=== PATIENT | female | born 1945 | race Caucasian/White ===

== ENCOUNTER 2019-04-19 10:15 | Emergency (ER) | payer OTHER ==
[2019-04-19 12:27] LABS: Absolute Lymphocytes (CBC) 1.5 K/uL (0.7-4.9); Hematocrit 43.2 % (36.0-45.0); Lymphocytes % 34.4 % (15.3-44.8); RBC Red Blood Cell Count 4.53 M/uL (3.86-4.86)
[2019-04-19 12:28] LABS: Protime INR 0.97
[2019-04-19] MEDS ORDERED: ASPIRIN 81 MG CHEWABLE TABLET ONE (12:47)
[2019-04-19] MEDS ORDERED: NA CHLORIDE 0.9% 1,000 ML ONE (12:47)
[2019-04-19 12:49] LABS: ALT/SGPT 17 U/L (12-78); AST/SGOT 16 U/L (15-37); Alkaline Phosphatase 74 U/L (45-117); BUN Blood Urea Nitrogen 10 mg/dL (7-18); Bicarbonate 29 mmol/L (21-32); Bilirubin Direct 0.1 mg/dL (0-0.2); Bilirubin Total 0.4 mg/dL (0.2-1.0); Glucose Level 89 mg/dL (74-106); Lipase 282 U/L (73-393); Magnesium 2.2 mg/dL (1.8-2.4); NT PRO-BNP 326 pg/mL (<450); Potassium 3.7 mmol/L (3.5-5.1); Protein, Total 7.2 g/dL (6.4-8.2); Sodium Level 136 mmol/L (136-145); Troponin (Emerg Dept Use Only) < 0.02 ng/mL (0.0-0.045)
[2019-04-19] MEDS ORDERED: FOLIC ACID 5 MG/ML VIAL ONE (12:49)
[2019-04-19 13:16] LABS: Urine Blood TRACE (NEG); Urine Glucose NEGATIVE (NEG); Urine Protein NEGATIVE (NEG); Urine Specific Gravity 1.015 (1.005-1.030)
[2019-04-19] MEDS ORDERED: CEFTRIAXONE/SWI 1gm 1 GM/10 ML SYR ONE (14:22)
--- NOTE | 2019-04-19 14:58 | ER ---
Nurse's Notes [facility] Name: Eve Lr Age: 73 yrs Sex: Female : 1945 Arrival Date: 04/19/2019 Time: 10:19 Bed 15 Private MD: Diagnosis: Fall due to bumping against object;Weakness;Urinary tract infection, site not specified Presentation: 04/19 10:42 Presenting complaint: Patient states: "4 weeks ago I became a little shaky, having hot ss flashes, crying all the time and five days ago, I was calling items different names, but then it went away after about five minutes and this morning, I went walking and all of a sudden out of nowhere I just fell over to the right side and fell into somebody's yard." Patient feels shaky, mild headache and generalized weakness.". Transition of care: patient was not received from another setting of care. No acute neurological deficit is noted. Pre-hospital glucose is not applicable to this patient. Onset of symptoms is unknown. Risk Assessment: Do you want to hurt yourself or someone else? Patient reports no desire to harm self or others. Initial Sepsis Screen: Does the patient meet any 2 criteria? No. Patient's initial sepsis screen is negative. Does the patient have a suspected source of infection? No. Patient's initial sepsis screen is negative. Care prior to arrival: None. 10:42 Method Of Arrival: Ambulatory ss 10:42 Acuity: MOLLY 3 ss Stroke Activation: Symptom onset > 6 hours Physician: Stroke Attending; Name: ; Notified At: ; Arrived At: Physician: Chief Stroke Resident; Name: ; Notified At: ; Arrived At: Physician: Stroke Resident; Name: ; Notified At: ; Arrived At: Physician: ED Attending; Name: ; Notified At: ; Arrived At: Physician: ED Resident; Name: ; Notified At: ; Arrived At: Historical: - Allergies: 10:45 Amoxicillin; ss - PMHx: 15:58 Hypothyroidism; Hypertension; Anxiety; ph - Immunization history:: Flu vaccine is not up to date. - Social history:: Smoking status: Patient/guardian denies using tobacco. - Ebola Screening: : Patient denies exposure to infectious person Patient denies travel to an Ebola-affected area in the 21 days before illness onset. - Family history:: not pertinent. Screenin:47 Abuse screen: Denies threats or abuse. Nutritional screening: No deficits noted. ph Tuberculosis screening: No symptoms or risk factors identified. Fall Risk Fall in past 12 months (25 points). No secondary diagnosis (0 pts). IV access (20 points). Ambulatory Aid- None/Bed Rest/Nurse Assist (0 pts). Gait- Normal/Bed Rest/Wheelchair (0 pts) Mental Status- Oriented to own ability (0 pts). Total Webber Fall Scale indicates High Risk Score (45 or more points). Fall prevention measures have been instituted. Side Rails Up X 2 Placed Close to Nursing Station Frequent Obs/Assessments Occuring. Assessment: 11:30 General: Appears in no apparent distress. comfortable, slender, well groomed, Behavior ph is calm, cooperative. Pain: Denies pain. Neuro: No deficits noted. Level of Consciousness is awake, alert, obeys commands, Oriented to person, place, time, situation, Document Specialist are equal bilaterally Moves all extremities. Full function Gait is steady, Speech is normal, Facial symmetry appears normal, Pupils are PERRLA, Intact Reports Pt reports difficulty walking, states she fell while on her daily walk, denies injury. Denies blurred vision dizziness, difficulty swallowing, numbness headache. Cardiovascular: Denies chest pain, nausea, shortness of breath, syncope, Capillary refill < 3 seconds Patient's skin is warm and dry. Respiratory: Respiratory effort is even, unlabored, Respiratory pattern is regular, symmetrical. 11:30 VAN Scoring: Arm Drift: Patients demonstrates NO arm weakness. Patient is VAN Negative. ph GI: No signs and/or symptoms were reported involving the gastrointestinal system. : No signs and/or symptoms were reported regarding the genitourinary system. Derm: Skin is intact, is healthy with good turgor, is fragile, is thin, Skin is dry, Skin is pink, warm \\T\\ dry. normal, Skin temperature is warm. 12:30 Patient has been NPO before screening. The patient is alert, and able to follow ph commands. The patient does not exhibit slurred or garbled speech. The patient is not exhibiting difficulty speaking. The patient does not exhibit difficulty understanding words. The patient is able to swallow own secretions with no drooling or need for suction. Patient tolerated one teaspoon of water. No drooling, immediate coughing, gurgling, or clearing of the throat was noted. The patient tolerated 90mL of water. No drooling, immediate coughing, gurgling, or clearing of the throat was noted. The patient passed the bedside swallow screening. Oral medications may be given as ordered. Contact Physician for further diet orders. Provider notified of bedside swallow screening results: David Lino MD. 13:10 Reassessment: Patient appears in no apparent distress at this time. Patient and/or ph family updated on plan of care and expected duration. Pain level reassessed. Patient is alert, oriented x 3, equal unlabored respirations, skin warm/dry/pink. Pt taken to radiology vis wheelchair. 14:46 Reassessment: No changes from previously documented assessment. Patient and/or family ph updated on plan of care and expected duration. Pain level reassessed. Patient is alert, oriented x 3, equal unlabored respirations, skin warm/dry/pink. Pt taken to MRA via wheelchair. Vital Signs: 10:45 BP 157 / 86; Pulse 65; Resp 16; Temp 98.5(TE); Pulse Ox 99% on R/A; Weight 50.8 kg; ss Height 5 ft. 3 in. (160.02 cm); Pain 2/10; 12:00 BP 158 / 87; Pulse 67; Resp 18; Pulse Ox 99% on R/A; ph 13:00 BP 161 / 96; Pulse 67; Resp 18; Pulse Ox 99% on R/A; ph 14:15 BP 146 / 78; Pulse 68; Resp 16; Pulse Ox 100% on R/A; ph 15:52 BP 154 / 78; Pulse 63; Resp 16; Temp 97.8; Pulse Ox 98% on R/A; ph 10:45 Body Mass Index 19.84 (50.80 kg, 160.02 cm) ss NIH Stroke Scale Scores: 11:30 NIHSS Score: 0 ph 12:51 NIHSS Score: 0 [facility] ED Course: 10:19 Patient arrived in ED. as 10:45 Triage completed. ss 10:45 Arm band placed on left wrist. ss 11:00 CT Head Brain wo Cont In Process Unspecified. EDMS 11:21 Aditi Calhoun RN is Primary Nurse. ph 11:28 David Lino MD is Attending Physician. karolyn 12:00 EKG done, by ophthalmic medical technologist. reviewed by David Lino MD. at1 13:30 US Carotid Artery Bilateral In Process Unspecified. EDMS 13:30 Inserted saline lock: 22 gauge in right antecubital area, using aseptic technique. ph 14:14 XRAY Chest (1 view) In Process Unspecified. EDMS 14:14 Ultrasound completed. Patient tolerated well. Patient moved back from ultrasound. lc3 14:49 Patient has correct armband on for positive identification. Allergy band placed. Bed in ph low position. Call light in reach. Side rails up X 1. 14:52 Brain Wo Cont In Process Unspecified. EDMS 14:57 Chidi Yang MD is Referral Physician. karolyn 15:55 No provider procedures requiring assistance completed. IV discontinued, intact, ph bleeding controlled, No redness/swelling at site. Pressure dressing applied. Administered Medications: 13:05 Drug: Aspirin 162 mg Route: PO; ph 15:59 Follow up: Response: No adverse reaction ph 13:05 Drug: NS 0.9% 1000 ml Route: IV; Rate: 1 bolus; Site: right antecubital; ph 15:59 Follow up: Response: No adverse reaction; IV Status: Completed infusion; IV Intake: ph 400ml 13:05 Drug: foLIC Acid 1 mg Route: IVPB; Site: right antecubital; ph 16:00 Follow up: Response: No adverse reaction; IV Status: Completed infusion ph 14:32 Drug: Rocephin 1 grams Route: IV; Rate: per protocol; Site: right antecubital; ph 16:01 Follow up: Response: No adverse reaction; IV Status: Completed infusion ph 15:59 Not Given (Other Intervention Used): NS 0.9% 1000 ml IV at 125 ml/hr continuous ph Intake: 15:59 IV: 400ml; Total: 400ml. ph Outcome: 14:57 Discharge ordered by . karolyn 15:56 Discharged to home ambulatory, with friend. ph 15:56 Condition: good 15:56 Discharge instructions given to patient, Instructed on discharge instructions, follow up and referral plans. medication usage, Demonstrated understanding of instructions, follow-up care, medications, Prescriptions given X 2. 16:02 Patient left the ED. ph NIH Stroke Scale - NIH Stroke Score Date: 04/19/2019 Time: 11:30 Total Score = 0 1a. Level of Consciousness (LOC) - 0(Alert) 1b. Level of Consciousness (LOC) (Year \\T\\ Age) - 0(Both) 1c. LOC Commands (Open \\T\\ Closes Eyes/Track Welder) - 0(Both) 2. Best Gaze (Lateral Gaze Paresis) - 0(Normal) 3. Visual Field Loss - 0(No visual loss) 4. Facial Palsy - 0(Normal) 5a. Left Arm: Motor (10-second hold) - 0(No drift) 5b. Right Arm: Motor (10-second hold) - 0(No drift) 6a. Left Leg: Motor (5-second hold - always test supine) - 0(No drift) 6b. Right Leg: Motor (5-second hold - always test supine) - 0(No drift) 7. Limb Ataxia (finger/nose \\T\\ heel/rao - test with eyes open) - 0(Absent) 8. Sensory Loss (pinprick arms/legs/face) - 0(Normal) 9. Best Language: Aphasia (description/naming/reading) - 0(No aphasia) 10. Dysarthria (speech clarity - read or repeat words) - 0(Normal) 11. Extinction and Inattention (visual/tactile/auditory/spatial/personal) - 0(No abnormality) Initials: NIH Stroke Scale - NIH Stroke Score Date: 04/19/2019 Time: 12:51 Total Score = 0 1a. Level of Consciousness (LOC) - 0(Alert) 1b. Level of Consciousness (LOC) (Year \\T\\ Age) - 0(Both) 1c. LOC Commands (Open \\T\\ Closes Eyes/Track Welder) - 0(Both) 2. Best Gaze (Lateral Gaze Paresis) - 0(Normal) 3. Visual Field Loss - 0(No visual loss) 4. Facial Palsy - 0(Normal) 5a. Left Arm: Motor (10-second hold) - 0(No drift) 5b. Right Arm: Motor (10-second hold) - 0(No drift) 6a. Left Leg: Motor (5-second hold - always test supine) - 0(No drift) 6b. Right Leg: Motor (5-second hold - always test supine) - 0(No drift) 7. Limb Ataxia (finger/nose \\T\\ heel/rao - test with eyes open) - 0(Absent) 8. Sensory Loss (pinprick arms/legs/face) - 0(Normal) 9. Best Language: Aphasia (description/naming/reading) - 0(No aphasia) 10. Dysarthria (speech clarity - read or repeat words) - 0(Normal) 11. Extinction and Inattention (visual/tactile/auditory/spatial/personal) - 0(No abnormality) Initials: karolyn Signatures: Dispatcher [employer] David Guo MD MD cha Martinez, Amelia as Smirch, Shelby, RN RN Billie Cordova, chair upholsterer EKG Tat1 Aditi Calhoun RN RN Yannick Schmitz [facility]
--- NOTE | 2019-04-19 14:58 | EDPHYS ---
[facility] Name: Eve Lr Age: 73 yrs Sex: Female : 1945 Arrival Date: 04/19/2019 Time: 10:19 Bed 15 Private MD: ED Physician David Lino HPI: 04/19 12:51 This 73 yrs old Female presents to ER via Ambulatory with complaints of karolyn Trouble Walking. 12:51 The patient presents to the emergency department with weakness of the difficult karolyn walking, the patient falls to the left. Onset: The symptoms/episode began/occurred 5 day(s) ago. Context: occurred at home, occurred while the patient was after taking a medication. Associated signs and symptoms: The patient has no apparent associated signs or symptoms. Severity of symptoms: At their worst the symptoms were mild in the emergency department the symptoms are unchanged. Patient's baseline: Neuro: alert and fully oriented. The patient has not experienced similar symptoms in the past. Historical: - Allergies: 10:45 Amoxicillin; ss - PMHx: 15:58 Hypothyroidism; Hypertension; Anxiety; ph - Immunization history:: Flu vaccine is not up to date. - Social history:: Smoking status: Patient/guardian denies using tobacco. - Ebola Screening: : Patient denies exposure to infectious person Patient denies travel to an Ebola-affected area in the 21 days before illness onset. - Family history:: not pertinent. ROS: 12:51 Constitutional: Negative for fever, chills, and weight loss, Eyes: Negative for injury, karolyn pain, redness, and discharge, ENT: Negative for injury, pain, and discharge, Neck: Negative for injury, pain, and swelling, Cardiovascular: Negative for chest pain, palpitations, and edema, Respiratory: Negative for shortness of breath, cough, wheezing, and pleuritic chest pain, Abdomen/GI: Negative for abdominal pain, nausea, vomiting, diarrhea, and constipation, Back: Negative for injury and pain, : Negative for injury, bleeding, discharge, and swelling, MS/Extremity: Negative for injury and deformity, Skin: Negative for injury, rash, and discoloration, Psych: Negative for depression, anxiety, suicide ideation, homicidal ideation, and hallucinations, Allergy/Immunology: Negative for hives, rash, and allergies, Endocrine: Negative for neck swelling, polydipsia, polyuria, polyphagia, and marked weight changes, Hematologic/Lymphatic: Negative for swollen nodes, abnormal bleeding, and unusual bruising. 12:51 Neuro: Positive for dizziness, weakness. Exam: 12:51 Constitutional: This is a well developed, well nourished patient who is awake, alert, karolyn and in no acute distress. Head/Face: Normocephalic, atraumatic. Eyes: Pupils equal round and reactive to light, extra-ocular motions intact. Lids and lashes normal. Conjunctiva and sclera are non-icteric and not injected. Cornea within normal limits. Periorbital areas with no swelling, redness, or edema. ENT: Nares patent. No nasal discharge, no septal abnormalities noted. Tympanic membranes are normal and external auditory canals are clear. Oropharynx with no redness, swelling, or masses, exudates, or evidence of obstruction, uvula midline. Mucous membranes moist. Neck: Trachea midline, no thyromegaly or masses palpated, and no cervical lymphadenopathy. Supple, full range of motion without nuchal rigidity, or vertebral point tenderness. No Meningismus. Chest/axilla: Normal chest wall appearance and motion. Nontender with no deformity. No lesions are appreciated. Cardiovascular: Regular rate and rhythm with a normal S1 and S2. No gallops, murmurs, or rubs. Normal PMI, no JVD. No pulse deficits. Respiratory: Lungs have equal breath sounds bilaterally, clear to auscultation and percussion. No rales, rhonchi or wheezes noted. No increased work of breathing, no retractions or nasal flaring. Abdomen/GI: Soft, non-tender, with normal bowel sounds. No distension or tympany. No guarding or rebound. No evidence of tenderness throughout. Back: No spinal tenderness. No costovertebral tenderness. Full range of motion. Female : Normal external genitalia. Skin: Warm, dry with normal turgor. Normal color with no rashes, no lesions, and no evidence of cellulitis. MS/ Extremity: Pulses equal, no cyanosis. Neurovascular intact. Full, normal range of motion. Neuro: Awake and alert, GCS 15, oriented to person, place, time, and situation. Cranial nerves II-XII grossly intact. Motor strength 5/5 in all extremities. Sensory grossly intact. Cerebellar exam normal. Normal gait. Psych: Awake, alert, with orientation to person, place and time. Behavior, mood, and affect are within normal limits. Vital Signs: 10:45 BP 157 / 86; Pulse 65; Resp 16; Temp 98.5(TE); Pulse Ox 99% on R/A; Weight 50.8 kg; ss Height 5 ft. 3 in. (160.02 cm); Pain 2/10; 12:00 BP 158 / 87; Pulse 67; Resp 18; Pulse Ox 99% on R/A; ph 13:00 BP 161 / 96; Pulse 67; Resp 18; Pulse Ox 99% on R/A; ph 14:15 BP 146 / 78; Pulse 68; Resp 16; Pulse Ox 100% on R/A; ph 15:52 BP 154 / 78; Pulse 63; Resp 16; Temp 97.8; Pulse Ox 98% on R/A; ph 10:45 Body Mass Index 19.84 (50.80 kg, 160.02 cm) NIH Stroke Scale Scores: 11:30 NIHSS Score: 0 ph 12:51 NIHSS Score: 0 karolyn MDM: 11:28 Patient medically screened. karolyn 14:59 Data reviewed: vital signs, nurses notes, lab test result(s), EKG, radiologic studies, [place] CT scan, doppler, MRI, plain films. 04/19 11:40 Order name: Basic Metabolic Panel; Complete Time: 12:51 [place] 04/19 11:40 Order name: CBC with Diff; Complete Time: 12:51 [place] 04/19 11:40 Order name: LFT's; Complete Time: 12:51 [place] 04/19 11:40 Order name: Magnesium; Complete Time: 12:51 [place] 04/19 11:40 Order name: NT PRO-BNP; Complete Time: 12:51 [place] 04/19 11:40 Order name: PT-INR; Complete Time: 12:51 [place] 04/19 10:47 Order name: CT Head Brain wo Cont 04/19 11:40 Order name: Troponin (emerg Dept Use Only); Complete Time: 12:51 [place] 04/19 11:40 Order name: XRAY Chest (1 view) [place] 04/19 11:40 Order name: Lipase; Complete Time: 12:51 [place] 04/19 11:40 Order name: Urine Culture [place] 04/19 12:34 Order name: US Carotid Artery Bilateral [place] 04/19 13:11 Order name: Urine Dipstick--Ancillary (enter results); Complete Time: 13:34 [facility] 04/19 11:40 Order name: EKG; Complete Time: 11:41 [place] 04/19 11:40 Order name: Cardiac monitoring; Complete Time: 13:29 [place] 04/19 11:40 Order name: EKG - Nurse/Tech; Complete Time: 13:29 [place] 04/19 11:40 Order name: IV Saline Lock; Complete Time: 13:29 [place] 04/19 11:40 Order name: Labs collected and sent; Complete Time: 13:29 [place] 04/19 11:40 Order name: O2 Per Protocol; Complete Time: 13:29 [place] 04/19 11:40 Order name: O2 Sat Monitoring; Complete Time: 13:30 [place] 04/19 11:40 Order name: Urine Dipstick-Ancillary (obtain specimen); Complete Time: 13:29 [place] 04/19 13:05 Order name: Brain Wo Cont EDMS Administered Medications: 13:05 Drug: Aspirin 162 mg Route: PO; ph 15:59 Follow up: Response: No adverse reaction ph 13:05 Drug: NS 0.9% 1000 ml Route: IV; Rate: 1 bolus; Site: right antecubital; ph 15:59 Follow up: Response: No adverse reaction; IV Status: Completed infusion; IV Intake: ph 400ml 13:05 Drug: foLIC Acid 1 mg Route: IVPB; Site: right antecubital; ph 16:00 Follow up: Response: No adverse reaction; IV Status: Completed infusion ph 14:32 Drug: Rocephin 1 grams Route: IV; Rate: per protocol; Site: right antecubital; ph 16:01 Follow up: Response: No adverse reaction; IV Status: Completed infusion ph 15:59 Not Given (Other Intervention Used): NS 0.9% 1000 ml IV at 125 ml/hr continuous ph Disposition: 04/19/19 14:57 Discharged to Home. Impression: Fall due to bumping against object, Weakness, Urinary tract infection, site not specified. - Condition is Stable. - Discharge Instructions: Urinary Tract Infection, Adult, Weakness, Fatigue, Urinary Tract Infection, Adult, [id number], Weakness, [id number], Aspirin and Your Heart. - Prescriptions for Folic Acid 1 mg Oral Tablet - take 1 tablet by ORAL route once daily; 30 tablet. Macrobid 100 mg Oral Capsule - take 1 capsule by ORAL route every 12 hours for 7 days; 14 capsule. - Medication Reconciliation Form, Thank You Letter, Antibiotic Education, Prescription Opioid Use form. - Follow up: Private Physician; When: 2 - 3 days; Reason: Recheck today's complaints, Continuance of care, Re-evaluation by your physician. Follow up: Chidi Yang; When: 2 - 3 days; Reason: Recheck today's complaints, Continuance of care, Re-evaluation by your physician. - Problem is new. - Symptoms have improved. NIH Stroke Scale - NIH Stroke Score Date: 04/19/2019 Time: 11:30 Total Score = 0 1a. Level of Consciousness (LOC) - 0(Alert) 1b. Level of Consciousness (LOC) (Year \T\ Age) - 0(Both) 1c. LOC Commands (Open \T\ Closes Eyes/Radiator Mechanic) - 0(Both) 2. Best Gaze (Lateral Gaze Paresis) - 0(Normal) 3. Visual Field Loss - 0(No visual loss) 4. Facial Palsy - 0(Normal) 5a. Left Arm: Motor (10-second hold) - 0(No drift) 5b. Right Arm: Motor (10-second hold) - 0(No drift) 6a. Left Leg: Motor (5-second hold - always test supine) - 0(No drift) 6b. Right Leg: Motor (5-second hold - always test supine) - 0(No drift) 7. Limb Ataxia (finger/nose \T\ heel/rao - test with eyes open) - 0(Absent) 8. Sensory Loss (pinprick arms/legs/face) - 0(Normal) 9. Best Language: Aphasia (description/naming/reading) - 0(No aphasia) 10. Dysarthria (speech clarity - read or repeat words) - 0(Normal) 11. Extinction and Inattention (visual/tactile/auditory/spatial/personal) - 0(No abnormality) Initials: NIH Stroke Scale - NIH Stroke Score Date: 04/19/2019 Time: 12:51 Total Score = 0 1a. Level of Consciousness (LOC) - 0(Alert) 1b. Level of Consciousness (LOC) (Year \T\ Age) - 0(Both) 1c. LOC Commands (Open \T\ Closes Eyes/Radiator Mechanic) - 0(Both) 2. Best Gaze (Lateral Gaze Paresis) - 0(Normal) 3. Visual Field Loss - 0(No visual loss) 4. Facial Palsy - 0(Normal) 5a. Left Arm: Motor (10-second hold) - 0(No drift) 5b. Right Arm: Motor (10-second hold) - 0(No drift) 6a. Left Leg: Motor (5-second hold - always test supine) - 0(No drift) 6b. Right Leg: Motor (5-second hold - always test supine) - 0(No drift) 7. Limb Ataxia (finger/nose \T\ heel/rao - test with eyes open) - 0(Absent) 8. Sensory Loss (pinprick arms/legs/face) - 0(Normal) 9. Best Language: Aphasia (description/naming/reading) - 0(No aphasia) 10. Dysarthria (speech clarity - read or repeat words) - 0(Normal) 11. Extinction and Inattention (visual/tactile/auditory/spatial/personal) - 0(No abnormality) Initials: [place] Signatures: Dispatcher [employer] [facility] David Lino MD MD cha Smirch, Shelby, RN RN ss Aditi Calhoun RN RN ph Corrections: (The following items were deleted from the chart) 13:05 12:34 MR STROKE PROTOCOL+MRI.RAD.[place] ordered. [facility] 14:59 14:57 04/19/2019 14:57 Discharged to Home. Impression: Fall due to bumping karolyn against object; Weakness. Condition is Stable. Discharge Instructions: Weakness, Fatigue, Weakness, [id number], Aspirin and Your Heart. Prescriptions for Folic Acid 1 mg Oral Tablet - take 1 tablet by ORAL route once daily; 30 tablet. and Forms are Medication Reconciliation Form, Thank You Letter, Antibiotic Education, Prescription Opioid Use. Follow up: Private Physician; When: 2 - 3 days; Reason: Recheck today's complaints, Continuance of care, Re-evaluation by your physician. Follow up: Chidi Yang; When: 2 - 3 days; Reason: Recheck today's complaints, Continuance of care, Re-evaluation by your physician. Problem is new. Symptoms have improved. [place] 16:02 14:59 04/19/2019 14:57 Discharged to Home. Impression: Fall due to bumping ph against object; Weakness; Urinary tract infection, site not specified. Condition is Stable. Discharge Instructions: Weakness, Fatigue, Weakness, [id number], Aspirin and Your Heart. Prescriptions for Folic Acid 1 mg Oral Tablet - take 1 tablet by ORAL route once daily; 30 tablet. and Forms are Medication Reconciliation Form, Thank You Letter, Antibiotic Education, Prescription Opioid Use. Follow up: Private Physician; When: 2 - 3 days; Reason: Recheck today's complaints, Continuance of care, Re-evaluation by your physician. Follow up: Chidi Yang; When: 2 - 3 days; Reason: Recheck today's complaints, Continuance of care, Re-evaluation by your physician. Problem is new. Symptoms have improved. karolyn
[2019-04-19 16:54] VITALS: BP 154/78; TEMP 97.8; O2SAT 98
--- NOTE | 2019-04-20 04:41 | EKG ---
Test Date: 2019-04-19 Test Time: 11:44:55 [employer] Operator: DEMAR MEASUREMENT RESULTS: Intervals: Rate: 57 NH: 184 QRSD: 80 QT: 414 QTc: 402 Mason: P: 82 NH: 184 QRS: 73 T: 68 INTERPRETIVE STATEMENTS: Sinus bradycardia Right atrial enlargement Abnormal ECG Compared to ECG 05/09/2016 19:29:29 Sinus rhythm no longer present ST (T wave) deviation no longer present Electronically Signed On 04-20-19 04:40:21 CDT by Jean-Pierre Lopez
--- NOTE | 2019-04-20 17:21 | RAD REPORT ---
EXAM DESCRIPTION: [place] Single View04/19/2019 7:17 pm CLINICAL HISTORY: cough COMPARISON: 2016 FINDINGS: The lungs appear clear of acute infiltrate. The heart is normal size IMPRESSION: No acute abnormalities displayed
--- NOTE | 2019-04-22 10:31 | RAD REPORT ---
EXAM DESCRIPTION: MRI BRAIN W/O CONTRAST CLINICAL HISTORY: Stroke like symptoms COMPARISON: Non immediately available. TECHNIQUE: Sagittal T1 weighted and coronal heavily T2 weighted images were obtained. Axial proton density, T2 weighted, T2 Flair and diffusion weighted sequences obtained. This exam was performed according to our departmental dose-optimization program, which includes automated exposure control, adjustment of the mA and/or kV according to patient size and/or use of iterative reconstruction technique. FINDINGS: Diffusion imaging shows no acute infarction, no mass affect, edema or shift of midline structures identifiable. The patient has atrophy change primarily in the frontal lobes. Scattered mild chronic ischemic changes in the cerebral white matter noted. Ventricles are in proportion to volume loss. No sella or suprasella abnormality. Mastoid air cells and paranasal sinuses are clear. IMPRESSION: 1. No acute infarction changes seen. 2. Atrophy and chronic ischemic changes are present.
--- NOTE | 2019-04-22 14:18 | RAD REPORT ---
EXAM DESCRIPTION: CT HEAD WITHOUT CONTRAST CLINICAL HISTORY: Fall, right sided weakness. COMPARISON: None. TECHNIQUE: Axial 5 mm thick images of the head were obtained without contrast. Sagittal and coronal reformatted images generated and reviewed. This exam was performed according to our departmental dose-optimization program, which includes automated exposure control, adjustment of the mA and/or kV according to patient size and/or use of iterative reconstruction technique. FINDINGS: No intracranial hemorrhage is present. No mass, edema or shift of midline structures. Moderate severity atrophy present. Ventricles are in proportion. The patient has scattered chronic ischemic change in the cerebral white matter. Mastoid and paranasal sinuses are clear. No acute bone finding. IMPRESSION: 1. Atrophy and chronic ischemic changes are present with no acute intracranial finding. 2. Chronic ischemic change can mask non-hemorrhagic CVA.
--- NOTE | 2019-04-24 12:23 | RAD REPORT ---
EXAM DESCRIPTION: US - CP - 04/24/2019 11:29 am CLINICAL HISTORY: Dizziness, syncope COMPARISON: None. TECHNIQUE: Real-time sonographic evaluation of both carotid systems was performed. Herrera scale and Do ppler interrogation were performed with waveform tracing bilaterally. FINDINGS: Normal high resistance waveforms are noted in both external carotid arteries. The common c arotid arteries and internal carotid arteries show normal low resistance waveforms. No significant plaque formation is seen. Peak systolic and end diastolic velocity values and the ICA/ CCA ratios are in the non-hemodynamically significant range. Antegrade flow seen in both vertebral arteries. Velocity values and ratios were recorded and are retained in the patient's imaging records. Due to prolonged technical issues with the PACs strapper operator systems, this final written report was delayed. Preliminary findings were provided at the time of the study. IMPRESSION: 1. No significant atherosclerotic changes noted. 2. No evidence of a hemodynamically significant stenosis.
== END 2019-04-19 16:02 | disposition home or self-care (01) ==
LOC: ER 10:15
DX: N39.0 Urinary tract infection, site not specified (principal); W18.00XA Striking against unspecified object with subsequent fall, initial encounter; Y93.89 Activity, other specified; Y92.009 Unspecified place in unspecified non-institutional (private) residence as the place of occurrence of the external cause; I10 Essential (primary) hypertension; Z88.1 Allergy status to other antibiotic agents
CPT/HCPCS: 96365; 96368; 93005; 87088; 85025; 87086; 80048; 36415; 83735; 85610; 80076; 81003; 84484; 83690; 83880; 70450; 71045; 93880; 70551; 99284; 96366; J0696; J7030

== ENCOUNTER 2019-08-16 08:26 | Day surgery (SDC) | payer OTHER ==
[2019-08-16] MEDS ORDERED: Zoledronic Acid/Mannitol/Water 5 MG/100 ML INFUS.BOT IV NR (09:00)
[2019-08-16 10:04] VITALS: BMI 19.5
[2019-08-16 10:05] VITALS: BP 155/87; TEMP 97.2; O2SAT 100
== END 2019-08-16 09:30 | disposition home or self-care (01) ==
LOC: DS 08:26
PROVIDERS: ATTEND Specialist
DX: M81.0 Age-related osteoporosis without current pathological fracture (principal); M85.80 Other specified disorders of bone density and structure, unspecified site; Z88.9 Allergy status to unspecified drugs, medicaments and biological substances
CPT/HCPCS: 96365; J3489

== ENCOUNTER 2021-06-23 09:27 | Day surgery (SDC) | payer OTHER ==
[2021-06-23] MEDS ORDERED: Zoledronic Acid/Mannitol/Water 5 MG/100 ML INFUS.BOT IV ONE (10:00)
[2021-06-23 10:21] VITALS: O2SAT 100; BMI 22.1
[2021-06-23 10:36] LABS: Potassium 3.8 mmol/L (3.5-5.1)
[2021-06-23] MEDS ORDERED: AMLODIPINE 5 MG TAB PO ONE (10:39)
[2021-06-23 11:57] VITALS: BP 194/88; TEMP 98.8
== END 2021-06-23 11:42 | disposition home or self-care (01) ==
LOC: DS 09:27
PROVIDERS: ATTEND Internal Medicine
DX: M81.0 Age-related osteoporosis without current pathological fracture (principal); R13.10 Dysphagia, unspecified; E86.0 Dehydration
CPT/HCPCS: 80048; 36415; 96365; J3489